=== PATIENT | male | born 1980 | race Caucasian/White ===

== ENCOUNTER 2024-04-07 11:37 | Day surgery (SDC) | payer BC ==
[~2024-04-07 11:37] MED LIST: Metoclopramide 10 MG/2 ML SDV IV PRN; Sodium Chloride 0.9% 1,000 ML IV SCH
[2024-04-07] MEDS: Sodium Chloride 0.9% 1,000 ML IV SCH (12:31)
[2024-04-07] MEDS ORDERED: Propofol 200 MG/20 ML SDV ONE (14:45)
== END 2024-04-07 15:55 | disposition home or self-care (01) ==
LOC: LB.SDS 11:37
PROVIDERS: ATTEND Surgery
DX: K63.5 Polyp of colon (principal); J45.909 Unspecified asthma, uncomplicated
CPT/HCPCS: J2704; J7030